=== PATIENT | male | born 1965 | race Caucasian/White ===

== ENCOUNTER 2019-04-06 22:27 | Observation (INO) ==
--- NOTE | 2019-04-06 22:51 | EKG Report ---
Test Performed on : 04/06/2019 10:14:15 PM Test Reason : chest pain Blood Pressure : / mmHG Vent. Rate : 064 BPM Atrial Rate : 064 BPM P-R Int : 162 ms QRS Dur : 134 ms QT Int : 470 ms P-R-T Axes : 016 009 035 degrees QTc Int : 484 ms Normal sinus rhythm. Right bundle branch block Abnormal ECG No previous ECGs available Unconfirmed Result
[2019-04-06 23:01] LABS: BASO% 0.3 % (0.0-0.8); EOS% 1.8 % (0.0-10.0); HEMATOCRIT 41.6 % (42.0-52.0); HEMOGLOBIN 13.9 g/dL (14.0-18.0); IMM GRAN% 0.3 % (0.0-0.5); LYMPH# 1.98 X1000 (1.2-3.4); LYMPH% 25.6 % (20.5-51.1); MCH 30.3 PG (27-31); MCHC 33.4 g/dL (33-37); MCV 90.8 FL (81-99); MONO# 0.45 X1000 (0.11-0.59); MONO% 5.8 % (1.7-9.3); MPV 9.6 FL (7.4-10.4); NEUT# 5.12 X1000 (1.4-6.5); NEUT% 66.2 % (42.2-75.2); PLT 275 X1000 (130-400); RBC 4.58 XMIL (4.7-6.1); RDW 13.6 % (11.5-14.5); WBC 7.73 X1000 (4.8-10.8)
[2019-04-06 23:02] LABS: BASO# 0.02 X1000 (0.0-0.2); EOS# 0.14 X1000 (0.0-0.7); IMM GRAN# 0.02 X1000 (0.0-0.04)
[2019-04-06 23:15] LABS: AGAP 14; ALBUMIN 4.6 g/dL (3.5-5.0); ALKALINE PHOSPHATASE 83 U/L (32-122); BUN 14 mg/dL (8-22); CALCIUM 8.7 mg/dL (8.8-10.2); CHLORIDE 106 mmol/L (98-107); COSMO 291; CREATININE 0.8 mg/dL (0.7-1.2); ESTIMATED GFR > 60; GLUCOSE 158 mg/dL (70-104); GOT 23 U/L (10-34); GPT 30 U/L (10-44); POTASSIUM 3.6 mmol/L (3.5-5.1); SODIUM 144 mmol/L (136-145); TCO2 25 mmol/L (25-35); TOTAL PROTEIN 6.7 g/dL (6.3-8.3)
[2019-04-06 23:28] LABS: INR 0.91; PROTIME 12.7 Seconds (11.0-16.0); PTT 25.3 Seconds (22.3-41.8)
[2019-04-06 23:35] LABS: CK PROFILE 281 U/L (24-204)
[2019-04-07 00:14] LABS: CK INDEX 0.7 (0.0-2.5); CK-MB 2.06 ng/mL (0.0-5.0)
--- NOTE | 2019-04-07 00:37 | PROVIDER DOCUMENTATION ---
This chart was entered by Misa Ramirez Scribe, acting as scribe for Betzaida Valentine CRNP. HPI-Chest Pain - General Chief Complaint: Chest Pain Stated Complaint: CP Time Seen by Provider: 04/06/19 23:00 Source: patient - History of Present Illness-CP Nature of Presenting Problem: pt is a 53 yr old male presenting via EMS with 3 hr complaint of crushing(01/24) left chest pain without radiation, nausea and vomiting. pt reports he has had same intermittently x 1 yr. pt denies shortness of breath, back pain or diaphoresis. pt does report HTN and nose bleed tonight. Location: reports: substernal Chest Pain Radiation: reports: no radiation Quality of Pain: reports: other (crushing) Severity in ED: moderate (01/24) Onset/Duration: 1-3 hours ago Timing: improving Context/Activities at Onset: reports: rest Modifying Factors: improves with: nothing Associated Symptoms: reports: nausea, vomiting. denies: back pain, diaphoresis, dizziness, fever/chills, shortness of breath Nitro Today/Relief: no nitro taken today Aspirin Treatment Today: no aspirin today Similar Symptoms Previously?: Yes Recently Seen Here or By Another Healthcare Provider: No Review of Systems - Adult - REVIEW OF SYSTEMS - ADULT Constitutional: denies: fever, fatique Eyes: reports: no symptoms reported Ears, Nose, Mouth & Throat: reports: epistaxis (RECENT NOT, CURRENT. PT REPORTS FREQUENT NOSEBLEED. DENIES TRAUMA) Cardiovascular: reports: chest pain. denies: palpitations, syncope Respiratory: denies: cough, shortness of breath Gastrointestinal: reports: nausea, vomiting. denies: abdominal pain, diarrhea Genitourinary: reports: no symptoms reported Musculoskeletal: denies: back pain, neck pain Integumentary: reports: no symptoms reported Neurological: denies: dizziness/vertigo, headache/migraines, syncope Psychiatric: reports: no symptoms reported Endocrine: reports: no symptoms reported Hematologic/Lymphatic: reports: no symptoms reported Allergic/Immunologic: reports: no symptoms reported All Other Systems: Reviewed and Negative Past History - Adult - PAST MEDICAL HISTORY-ADULT Review of Records: reports: Old Records Reviewed, Nursing Assessment Review, Medications Reviewed, Social history reviewed & non-contributory. Major Childhood Illnesses: reports: denies history Cardiovascular: reports: denies history Respiratory: reports: denies history Gastrointestinal: reports: denies history Obstetrical/Gynecological: reports: denies history Genitourinary: reports: denies history Musculoskeletal: reports: denies history Neurological: reports: denies history Endocrine/Immune: reports: denies history Other Conditions: reports: denies history - IMMUNIZATION STATUS Childhood Immunizations: See Nurse Assessment Flu Vaccine: See Nurse Assessment - FAMILY HISTORY Family History: reviewed, not pertinent - SOCIAL HISTORY Smoking: denies Substance Use: denies Living Situation: family Physical Exam-General - PHYSICAL EXAM-ADULT Initial Vital Signs Reviewed: Yes - CONSTITUTIONAL General Appearance: alert, no apparent distress, obese - EYES Eyes: PERRL/EOMI, pink conjunctivae - HEAD, EARS, NOSE, MOUTH & THROAT HENMT: normocephalic/atraumatic, moist mucous membranes, other (dry blood under nose) - NECK Neck: non-tender, full range of motion, supple, normal inspection - RESPIRATORY Respiratory: chest non-tender, lungs clear, normal breath sounds - CARDIOVASCULAR Cardiovascular: normal peripheral pulses, regular rate, rhythm, no edema - GASTROINTESTINAL (ABDOMEN) Abdominal Exam: normal bowel sounds, non tender, soft - LYMPHATIC Lymphatic: no adenopathy - MUSCULOSKELETAL Back Exam: normal inspection, no CVA tenderness, no vertebral tenderness Extremity: normal range of motion, non-tender, normal gait, normal inspection - SKIN Integumentary: normal color, normal turgor, warm/dry - NEUROLOGIC Neurologic: grossly normal - PSYCHIATRIC Psych/Mental Status: normal mood/affect, oriented x 3 - HEART Score HEART Score: History: Moderately Suspicious HEART Score: ECG: Non-Specific Repolarization Disturbance/LBBB/PM HEART Score: Age: 45-65 Years HEART Score: Risk Factors for Atherosclerotic Disease: 1 or 2 Risk Factors HEART Score: Troponin: < or = Normal Limit Total HEART Score:: 4 Progress - PLAN OF CARE/RESULTS Progress/Plan/Lab Results: Vital Signs - 8 hr 04/06/19 22:22 04/06/19 23:22 04/07/19 00:21 Temperature 98 F 97.8 F 98 F Pulse Rate 66 60 59 L Respiratory Rate Blood Pressure 139/96 134/87 132/92 O2 Sat by Pulse Oximetry 95 97 100 Laboratory Results - last 24 hr 04/06/19 04/06/19 04/06/19 22:18 22:18 22:18 WBC 7.73 RBC 4.58 L Hgb 13.9 L Hct 41.6 L MCV 90.8 MCH 30.3 MCHC 33.4 RDW Std Deviation 13.6 Plt Count 275 MPV 9.6 Immature Gran % (Auto) 0.3 Neut % (Auto) 66.2 Lymph % (Auto) 25.6 Drew % (Auto) 5.8 Eos % (Auto) 1.8 Baso % (Auto) 0.3 Immature Gran # (Auto) 0.02 Neut # (Auto) 5.12 Lymph # (Auto) 1.98 Drew # (Auto) 0.45 Eos # (Auto) 0.14 Baso # (Auto) 0.02 PT INR PTT (Actin FS) Sodium 144 Potassium 3.6 Chloride 106 Carbon Dioxide 25 Anion Gap 14 BUN 14 Creatinine 0.8 Estimated GFR/1.73 m2 > 60 BUN/Creatinine Ratio 18 Glucose 158 H Calculated Osmolality 291 Calcium 8.7 L Total Bilirubin 0.30 AST 23 ALT 30 Alkaline Phosphatase 83 Creatine Kinase 281 H Creatine Kinase Index 0.7 CK-MB (CK-2) 2.06 Troponin T Dnz-D-Pmcerxpoucb Pept 68 Total Protein 6.7 Albumin 4.6 Globulin 2.0 Albumin/Globulin Ratio 2.0 04/06/19 04/06/19 22:18 22:18 WBC RBC Hgb Hct MCV MCH MCHC RDW Std Deviation Plt Count MPV Immature Gran % (Auto) Neut % (Auto) Lymph % (Auto) Drew % (Auto) Eos % (Auto) Baso % (Auto) Immature Gran # (Auto) Neut # (Auto) Lymph # (Auto) Drew # (Auto) Eos # (Auto) Baso # (Auto) PT 12.7 INR 0.91 PTT (Actin FS) 25.3 Sodium Potassium Chloride Carbon Dioxide Anion Gap BUN Creatinine Estimated GFR/1.73 m2 BUN/Creatinine Ratio Glucose Calculated Osmolality Calcium Total Bilirubin AST ALT Alkaline Phosphatase Creatine Kinase Creatine Kinase Index CK-MB (CK-2) Troponin T < 0.010 [id number] Pept Total Protein Albumin Globulin Albumin/Globulin Ratio Orders Category Date Time Status Cardiac Monitoring DIRECTED Care 04/06/19 22:44 Active Oxygen Therapy- ED Nursing DIRECTED Care 04/06/19 22:44 Active Saline Loc NOW Care 04/06/19 22:44 Active CHEST-2 VIEWS [RAD] Stat Exams 04/06/19 22:44 Taken CBC WITH ELECTRONIC DIFF [HEME] Stat Lab 04/06/19 22:18 Completed CK PROFILE [SP CHEM] Stat Lab 04/06/19 22:18 Completed COMPREHENSIVE METABOLIC PANEL [CHEM] Stat Lab 04/06/19 22:18 Completed PRO B-NATRIURETIC PEPTIDE Stat Lab 04/06/19 22:18 Completed PROTIME WITH INR [COAG] Stat Lab 04/06/19 22:18 Completed PTT [COAG] Stat Lab 04/06/19 22:18 Completed TROPONIN T Stat Lab 04/06/19 22:18 Completed URINE DRUG SCREEN PL Stat Lab 04/07/19 00:01 Received CP/SOB/Palp >45 yrs of Age Stat Oth 04/06/19 22:44 Ordered EKG [EKG] Stat Ther 04/06/19 22:44 Draft DISCUSSED ADMISSION, PT IN AGREEMENT Result Diagrams: 04/06/19 22:18 04/06/19 22:18 - EKG 1 Time of EKG reading by physician:: 22:14 EKG Read and Signed by:: Elias Combs EKG Interpretation (*Must complete 3 of following elements*): Abnormal Rate: 64 Rhythm: nsr [place]: normal QRS: RBB IN Interval: normal ST Wave: normal Prior EKG Comparison: no prior EKG - XRAY 1 XRAY Study: Chest Impression: See EMR Report (NO ACUTE FINDINGS ON READ PER DR COMBS IN ER) Comparison with other Films: no prior study - CONSULTS/PCP/HOSPITALIST Notification #1 *Consult/PCP/Hospitalist*: DR LU Time Discussed: 00:41 Consult Disposition: Admit Departure - Departure Date of Disposition Decision: 04/07/19 Time of Disposition Decision: 00:35 DIAGNOSIS: Chest pain, Elevated CK Disposition: ADMITTED INPATIENT 09 Certified Medical Emergency: Emergent Condition: Stable Referrals and Follow-Ups: None,PCP [Primary Care Provider] - - Critical Care Note This patient required my direct & personal management of CC.: No Attestation - Physician/ TIMMY Attestation Patient care was provided by Advanced Practice Provider:: Yes Advanced Practice Provider:: Betzaida Valentine Advanced Practice Provider documentation review:: The Mid-level provider documentation, treatment plan and medical decision making was reviewed by the physician who agrees with all treatment and medical decision making by the MLP. The physician spent face to face time with patient:: No Advanced Practice Provider documentation review:: Supervising physician onsite and consulted in the evaluation and care of this patient. The physician did not have a face to face encounter with the patient. This chart was documented by the indicated scribe, (Misa Ramirez, Janee) and accurately reflects the services I performed and decisions made by me, Betzaida Valentine CRNP, as attested by the provider's signature.
[2019-04-07] MEDS ORDERED: ZOFRAN IV PRN (00:41)
[2019-04-07] MEDS ORDERED: MORPHINE IV PRN (00:41)
[2019-04-07] MEDS ORDERED: NS 1,000 ML IV ONE (00:41)
[2019-04-07 00:45] LABS: UR AMPHETAMINES QUAL NONE DETECTED (NONE DETECT); UR BARBITUATES QUAL NONE DETECTED (NONE DETECT); UR BENZODIAZEPIN QUAL NONE DETECTED (NONE DETECT); UR CANNABINOIDS QUAL NONE DETECTED (NONE DETECT); UR COCAINE QUAL NONE DETECTED (NONE DETECT); UR METHADONE QUAL NONE DETECTED (NONE DETECT); UR METHAMPHETAMINE QUAL NONE DETECTED (NONE DETECT); UR OPIATES QUAL NONE DETECTED (NONE DETECT); UR OXYCODONE QUAL NONE DETECTED (NONE DETECT); UR PCP QUAL NONE DETECTED (NONE DETECT); UR PROPOXYPHENE QUAL NONE DETECTED (NONE DETECT); UR TCA QUAL NONE DETECTED (NONE DETECT)
[2019-04-07 06:27] LABS: BASO# 0.02 X1000 (0.0-0.2); BASO% 0.2 % (0.0-0.8); EOS# 0.03 X1000 (0.0-0.7); EOS% 0.4 % (0.0-10.0); HEMATOCRIT 40.9 % (42.0-52.0); HEMOGLOBIN 13.1 g/dL (14.0-18.0); IMM GRAN# 0.01 X1000 (0.0-0.04); IMM GRAN% 0.1 % (0.0-0.5); LYMPH# 1.58 X1000 (1.2-3.4); LYMPH% 19.5 % (20.5-51.1); MCH 29.3 PG (27-31); MCV 91.5 FL (81-99); MONO# 0.44 X1000 (0.11-0.59); MONO% 5.4 % (1.7-9.3); MPV 9.8 FL (7.4-10.4); NEUT# 6.03 X1000 (1.4-6.5); NEUT% 74.4 % (42.2-75.2); PLT 273 X1000 (130-400); RBC 4.47 XMIL (4.7-6.1); RDW 13.6 % (11.5-14.5); WBC 8.11 X1000 (4.8-10.8)
[2019-04-07 06:52] LABS: AGAP 10; ALKALINE PHOSPHATASE 81 U/L (32-122); BUN 14 mg/dL (8-22); CALCIUM 8.4 mg/dL (8.8-10.2); CHLORIDE 108 mmol/L (98-107); COSMO 290; CREATININE 0.8 mg/dL (0.7-1.2); ESTIMATED GFR > 60; GLUCOSE 107 mg/dL (70-104); GOT 16 U/L (10-34); GPT 26 U/L (10-44); SODIUM 145 mmol/L (136-145); TCO2 27 mmol/L (25-35); TOTAL PROTEIN 6.3 g/dL (6.3-8.3)
[2019-04-07 07:06] LABS: CK PROFILE 247 U/L (24-204); CK-MB 2.56 ng/mL (0.0-5.0)
[2019-04-07 07:31] VITALS: BP 131/82
--- NOTE | 2019-04-07 07:34 | Diag Imaging Result Doc PS360 ---
EXAM: CHEST-2 VIEWS 04/06/2019 HISTORY: chest pain TECHNIQUE: PA and lateral chest COMMENT: There are no previous studies. The heart size is slightly enlarged. The inspiration is slightly suboptimal. There is some questionable increased opacity in both lower lobes medially. IMPRESSION: Cardiomegaly with questionable pulmonary edema. Electronically signed by Stephane Faulkner 04/07/2019 7:32 AM
[2019-04-07] MEDS ORDERED: PRINIVIL PO SCH (10:15)
--- NOTE | 2019-04-07 18:27 | HISTORY AND PHYSICAL ---
ADDENDUM: Patient seen and examined by myself. Full note dictated and discussed with nurse practitioner. Patient presented to the hospital with chest pain for about 3 hours, left-sided without radiation. Did have some nausea, vomiting prior to coming to the ER. We are going to admit him to the hospital and rule out acute VT. He has had these symptoms intermittently for a year and in fact he has already seen Cardiology as an outpatient, has a prescheduled appointment in 3 days. Please see full note. cc: Jarek Arriaga MD
--- NOTE | 2019-04-07 18:34 | HISTORY AND PHYSICAL ---
CHIEF COMPLAINT: Chest pain. HISTORY OF PRESENT ILLNESS: The patient is a 53-year-old male who presented to [facility]'s ER with the chief complaint of chest pain. The patient notes that he has had chest pain off and on for the past year. In fact, he has seen Cardiology in the past 2 weeks for the same chest pain. He has an appointment in 3 to 4 days for that same chest pain as well. The patient denies any radiation of the pain, although he does state that he has shoulder pain and is not sure if it is related to his current chest pain. States he has some occasional nausea, but does not think that is related to his chest pain. No vomiting. Denies any shortness of breath or sweating with pain. Does have a history of hypertension and actually has nosebleeds. REVIEW OF SYSTEMS: The patient notes the chest pain came on, crushing in nature, 7/10 in intensity, and has been fairly persistent. Denies any dysuria, frequency, urgency, hesitancy. Denies polyuria or polydipsia. Denies skin rashes, weight loss or weight gain. Notes he has had chest pain off and on for the past year. Denies any headaches, blurred vision, change in vision. Denies any focalized numbness, tingling, weakness in extremities. PAST MEDICAL HISTORY: Significant for hypertension as well as chronic chest pain. FAMILY HISTORY: Noncontributory. SOCIAL HISTORY: Patient does not smoke or drink. Denies illicit substances. He is . MEDICATIONS: He is not currently on any prescription medications. ALLERGIES: None. PHYSICAL EXAMINATION: VITAL SIGNS: Reviewed. He is awake, alert. He is afebrile. Pulse 80. BP stable. Respirations 20. GENERAL: Patient is in no current respiratory distress. HEENT: Normocephalic. NECK: Supple. CARDIOVASCULAR: Regular rate. CHEST: Clear, nonlabored. ABDOMEN: Soft, nondistended, nontender. EXTREMITIES: Moves all extremities. NEUROLOGIC: No focal changes. SKIN: Warm, dry. No rashes. LABS: First set of cardiac enzymes are negative. ASSESSMENT: 1. Chest pain. 2. Hypertension by history. 3. Hyperglycemia in a patient with no previous history of diabetes. PLAN: We are going to admit him to the hospital. He has a right bundle branch block on EKG. We are going to rule out HI. His enzymes are negative, and if symptoms improve, we may be able to discharge him home with outpatient follow-up, as he does have a cardiology appointment set for 3 days. cc: Jarek Arriaga MD
--- NOTE | 2019-04-07 20:08 | DISCHARGE SUMMARY ---
ADMISSION DATE: 04/07/2019 DISCHARGE DATE: 04/07/2019 DISCHARGE DIAGNOSES: 1. Chest pain. 2. Hypertension. CONSULTATIONS: None. PROCEDURES: None. BRIEF HOSPITAL COURSE: The patient is a 53-year-old male who presented to the hospital with left- sided, crushing chest pain, that was pretty consistent for 3 hours. Denied any real radiation of the pain other than possibly to his shoulder. He thinks he did have some burping and belching. Denied any sweating, shortness of breath. Denied any fevers, chills, cough, congestion, or desmond vomiting. DISPOSITION: Patient will be discharged home. His enzymes have been negative. He does have an outpatient appointment already set up with Cardiology in 3 days to follow up on testing that has previously been started prior to coming to the ER. I did discuss with patient that should symptoms come back, that he would need to stay in the hospital until which time he could have an inpatient stress test. However, since his symptoms have resolved, an outpatient stress test seems warranted. cc: Jarek Arriaga MD
[2019-04-07] MEDS ORDERED: NORVASC PO SCH (21:00)
== END 2019-04-07 13:45 | disposition home or self-care (01) ==
LOC: P.MEDSURG 22:27 → P.ED 22:27
PROVIDERS: ATTEND Family Medicine